=== PATIENT | male | born 1985 | race Caucasian/White ===

== ENCOUNTER 2021-09-03 08:51 | Day surgery (SDCO) | payer OTHER ==
[~2021-09-03] VITALS: Ht 172.7 cm; Wt 62.7 kg
[2021-09-03 09:58] LABS: BASOPHIL 0.1 % (0-2); EOSINOPHIL 0.1 % (0-5); HCT 43.7 % (42.0-52.0); HGB 14.9 g/dl (13.2-18.0); LYMPHOCYTE 18.6 % (15-48); MCH 30.6 pg (25.0-31.0); MCHC 34.1 g/dL (32.0-36.0); MCV 89.7 fL (78.0-100.0); MONOCYTE 7.4 % (0-12); MPV 9.5 fL (6.0-9.5); NEUTROPHIL 73.4 % (41-80); NRBC 0; PLT 350 K/uL (150-400); RBC 4.87 M/uL (4.70-6.00); RDW 12.9 % (11.5-14.0); WBC 13.9 K/uL (4.0-10.5)
[2021-09-03 10:16] LABS: ALBUMIN 3.8 g/dL (3.4-5.0); BILIRUBIN - TOTAL 0.3 mg/dL (0.2-1.0); BUN/CREAT RATIO (CALC) 31.2 RATIO; CREATININE 1.38 mg/dL (0.67-1.17); GLOBULIN (CALCULATION) 4.3 g/dL; POTASSIUM 3.1 mmol/L (3.5-5.1); TOTAL PROTEIN 8.1 g/dL (6.4-8.2)
[2021-09-03 10:19] LABS: BILIRUBIN NEGATIVE (NEGATIVE); BLOOD NEGATIVE Ery/uL (NEGATIVE); CLARITY CLEAR (CLEAR); COLOR YELLOW (YELLOW); GLUCOSE (U) NORMAL (NORMAL); LEUKOCYTES NEGATIVE Leu/uL (NEGATIVE); NITRITE NEGATIVE (NEGATIVE); PROTEIN NEGATIVE (NEGATIVE); SPECIFIC GRAVITY 1.015 (1.001-1.030); UROBILINOGEN 0.2 mg/dL (0.2-1.0); pH 8.5 (5.0-9.0)
[2021-09-03 10:33] LABS: LACTIC ACID 1.6 mmol/L (0.4-1.9)
[2021-09-04 07:26] LABS: BASOPHIL 0.4 % (0-2); EOSINOPHIL 1.6 % (0-5); HCT 29.9 % (42.0-52.0); LYMPHOCYTE 25.1 % (15-48); MCH 30.7 pg (25.0-31.0); MCHC 33.4 g/dL (32.0-36.0); MCV 91.7 fL (78.0-100.0); MONOCYTE 6.4 % (0-12); MPV 9.1 fL (6.0-9.5); NEUTROPHIL 66.2 % (41-80); NRBC 0; PLT 232 K/uL (150-400); RBC 3.26 M/uL (4.70-6.00); RDW 13.2 % (11.5-14.0); WBC 7.1 K/uL (4.0-10.5)
[2021-09-04 07:57] LABS: CREATININE 1.03 mg/dL (0.67-1.17); POTASSIUM 4.3 mmol/L (3.5-5.1)
--- NOTE | 2021-09-04 14:59 | NUR ---
09/04/21 Mr. Lowery lives at home with his parents. He is employed at [employer] and reports that he will have insurance in 20 days after 60 days of employment. His basic needs are being met.
[2021-09-04] MEDS ORDERED: PROTONIX 40MG T40 MG PO (15:26)
[2021-09-04] MEDS ORDERED: CARAFATE1 GM PO (15:26)
[2021-09-04] MEDS ORDERED: ZOFRAN4 M1 PO (15:30)
== END 2021-09-04 15:32 | disposition home or self-care (01) ==
LOC: FER 08:51 → FMS 12:22
PROVIDERS: Emergency Medicine; ADMIT Internal Medicine
DX: K22.70 Barrett's esophagus without dysplasia (principal); K29.81 Duodenitis with bleeding; K20.91 Esophagitis, unspecified with bleeding; K31.9 Disease of stomach and duodenum, unspecified; K44.9 Diaphragmatic hernia without obstruction or gangrene; N17.9 Acute kidney failure, unspecified; I12.9 Hypertensive chronic kidney disease with stage 1 through stage 4 chronic kidney disease, or unspecified chronic kidney disease; N18.2 Chronic kidney disease, stage 2 (mild); F17.210 Nicotine dependence, cigarettes, uncomplicated; E87.3 Alkalosis; E87.6 Hypokalemia; E87.8 Other disorders of electrolyte and fluid balance, not elsewhere classified; R00.0 Tachycardia, unspecified; Z20.822 Contact with and (suspected) exposure to COVID-19
CPT/HCPCS: 36415; 80048; 80053; 81003; 83605; 83690; 85025; 87040; 87339; 93005; C9113; G0378; J2250; J2405; J2543; J2704; J7030; J7120; U0002